=== PATIENT | female | born 1985 | race Caucasian/White ===

== ENCOUNTER 2023-12-08 07:28 | Emergency (ER) | payer BC, SELFPAY ==
[2023-12-08 07:32] VITALS: BP 127/73; PULSE 60; TEMP 37.1; O2SAT 100; BMI 23.3
--- NOTE | 2023-12-08 08:02 | ED.EYEPROB1 ---
HPI - Eye Problem General Chief complaint: Eye Problems Stated complaint: EYE INJRUY Time Seen by Provider: 12/08/23 07:33 Source: patient and family Mode of arrival: walk-in Limitations: no limitations History of Present Illness HPI Narrative: The patient is coming to the ER with a left eye irritation that she started having after she poked herself in the eye with a eyeliner pencil, the patient mentioned that she was going to work when she started having irritation and tearing and she does not have any blurry vision in the left eye but mostly tearing and pain. The patient does not wear contact lenses she will usually glasses and she wear goggles at work Related Data Previous Rx's ?Medication ?Instructions ?Recorded ibuprofen 600 mg tablet 600 mg PO Q8H PRN pain #20 tabs 12/08/23 tobramycin 0.3 % eye drops 2 drp ophthalmic (eye) Q4H #5 mL 12/08/23 tramadol 50 mg tablet 50 mg PO Q12H PRN pain #6 tabs 12/08/23 Allergies Allergy/AdvReac Type Severity Reaction Status Date / Time No Known Drug Allergies Allergy Verified 12/08/23 07:34 Review of Systems ROS Status of ROS 10 or more systems reviewed and unremarkable except as noted in history and below Exam Narrative Exam Narrative: Nurses notes and vital signs reviewed and patient is not hypoxic. General: Well-appearing and in no apparent distress. Skin: Warm, dry, no pallor noted. No rash. Head: Normocephalic, atraumatic. Neck: Supple, non-tender. Eye: Pupils are equal, round and EOMI. , the patient have irritation of the conjunctiva on the left side with erythema no open wounds or any hyphema or hypopyon or any signs of trauma to the globe itself, but the conjunctival erythema noted all over the eye with tearing. Eyelids are normal upper and lower The patient also was noted under fluorescent light that she have an abrasion that is just in the cornea mostly in the right upper quarter that is measuring 3 mm x 1 mm linear Ears, Nose, Mouth, and Throat: TM are clear, no nasal mucosal hypertrophy. Oral mucosa is moist, no posterior oropharynx erythema, uvula is mid-line Cardiovascular: Regular Rate and Rhythm without murmur, gallop or rub. Respiratory: No accessory muscle use or respiratory distress. Lungs are clear to auscultation, no wheezing, rales or rhonchi Chest Wall: no tenderness Back: No midline thoracic or lumbar vertebral tenderness. No CVA tenderness Musculoskeletal: normal ROM, no calf or popliteal tenderness, no lower extremity edema/swelling GI: Abdomen is soft, non-distended. Normal bowel sounds. No masses appreciated. No tenderness to palpation. No rebound, guarding, or rigidity noted. Neurological: A&O x4. No cranial nerve dysfunction observed. No truncal ataxia. Moves all extremities. Sensation intact. Psychiatric: Cooperative and interactive. Normal mood and affect. Constitutional Vital Signs, click to edit/add: Last Vital Signs Temp 98.7 F 12/08/23 07:32 Pulse 60 12/08/23 07:32 Resp 18 12/08/23 07:32 BP 127/73 12/08/23 07:32 Pulse Ox 100 12/08/23 07:32 O2 Del Method Room Air 12/08/23 07:32 Course Vital Signs Vital signs: Vital Signs Temperature 98.7 F 12/08/23 07:32 Pulse Rate 60 12/08/23 07:32 Respiratory Rate 18 12/08/23 07:32 Blood Pressure 127/73 12/08/23 07:32 Pulse Oximetry 100 12/08/23 07:32 Oxygen Delivery Method Room Air 12/08/23 07:32 Temperature 98.7 F 12/08/23 07:32 Pulse Rate 60 12/08/23 07:32 Respiratory Rate 18 12/08/23 07:32 Blood Pressure 127/73 12/08/23 07:32 Pulse Oximetry 100 12/08/23 07:32 Oxygen Delivery Method Room Air 12/08/23 07:32 MDM - Eye Problem MDM Narrative Medical decision making narrative: The patient presented to us with an abrasion to the left eye with the fluorescent lighting the patient was found to have an abrasion to the cornea that is 3 mm x 1 mm on the right upper quadrant The patient was feeling better after tetracaine provided with ibuprofen and tramadol prescription to go home with pain control She was instructed about the importance of follow-up with ophthalmology within 24 to 48 hours and she was referred to Dr. 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 The patient agrees with the following Diagnosis and Treatment plan and the patient will be discharged home. Discharge Plan Discharge Stand Alone Forms: Work/School Release, Portal Instructions Chief Complaint: Eye Problems Clinical Impression: Corneal abrasion Patient Disposition: Home, Self-Care Time of Disposition Decision: 08:00 Condition: Good Prescriptions / Home Meds: New tobramycin 0.3 % drops 2 drp ophthalmic (eye) Q4H Qty: 5 0RF Rx Instructions: left eye for 5 days tramadol 50 mg tablet 50 mg PO Q12H PRN (Reason: pain) Qty: 6 0RF ibuprofen 600 mg tablet 600 mg PO Q8H PRN (Reason: pain) Qty: 20 0RF Print Language: Romanian Instructions: Corneal Abrasion (ED) Referrals: Erick Molina MD [Physician] - As soon as possible ([address] [place], [place] [address] [place] [address] Get Directions)
[2023-12-08] MEDS: TETRACAINE HCL 0.5% OP SOL 80 DROP/4 ML BOTTLE OP (08:12)
[2023-12-08] MEDS: ERYTHROMYCIN OP OINT 0.5% 1 GM TUBE OP (08:12)
[2023-12-08] MEDS: FLUORESCEIN SODIUM 1 MG STRIP OP (08:12)
== END 2023-12-08 08:10 | disposition home or self-care (01) ==
LOC: ER 08:10
PROVIDERS: Emergency Provider Emergency Medicine; PCP Family Medicine
DX: S05.02XA Injury of conjunctiva and corneal abrasion without foreign body, left eye, initial encounter (principal); W22.8XXA Striking against or struck by other objects, initial encounter
CPT/HCPCS: 99283

== ENCOUNTER 2023-12-30 22:54 | Emergency (ER) | payer BC, SELFPAY ==
[2023-12-30 22:56] VITALS: BP 140/97; PULSE 78; TEMP 37.1; O2SAT 95; BMI 24.1
--- OUTSIDE RECORDS SUMMARY | 2023-12-30 23:07 | XMS_ITS | CCD ---
Author Organization [facility] Care Team Providers Care Brim Cutter Name Role Phone Lindy Dobson Primary Care Provider Barrett Davis Attending Provider YESI, DR GATICA Consulting Unavailable CLARA, DR SUSAN Jane Primary Care Unavailable YESI, DR GATICA Attending Unavailable YESI, DR GATICA Admitting Unavailable CLARA, DR SUSAN Jane Primary Care Unavailable ROHAN, DR CRISTINO Agarwal Attending Unavailable ROHAN, DR CRISTINO Agarwal Admitting Unavailable ROHAN, DR CRISTINO Agarwal Consulting Unavailable CLARA, DR SUSAN Jane Admitting Unavailable REYNA, DR SUSAN Jane Primary Care Unavailable REYNA, DR SUSAN Jane Attending Unavailable REYNA, DR SUSAN Jane Attending Unavailable REYNA, DR SUSAN Jane Admitting Unavailable REYNA, DR SUSAN Jane Primary Care Unavailable ESTEFANIA, DR PALOMO Romano Consulting Unavailable CLARA, DR SUSAN Jane Consulting Unavailable YESI, DR GATICA Attending Unavailable CLARA, DR SUSAN Jane Primary Care Unavailable YESI, DR GATICA Admitting Unavailable YESI, DR GATICA Consulting Unavailable ESTEFANIA, DR PALOMO Romano Consulting Unavailable GretchenMichelleLindy Unavailable [phone] MD Susan Reyna Attending Provider Susan Reyna Attending Unavailable Susan Reyna Admitting Unavailable Medications Current Medications Medication Drug Class(es) Dates Sig (Normalized) Sig (Original) [id number] 200 actuat albuterol 0.09 mg/actuat metered dose inhaler (1 source) beta2-Adrenergic Agonist Start: 03-03-2023 take 1 puff(s) by inhalation every four hours as needed Ventolin HFA 108 (90 Base) MCG/ACT 1 puff as needed Inhalation every 4 hrs for 30 days Feb, Active Budesonide / formoterol (1 source) Corticosteroid, beta2-Adrenergic Agonist Symbicort Active 12 hr buPROPion hydrochloride 150 mg extended release oral tablet (2 sources) Aminoketone Start: 12-11-2023 take 1 tablet by mouth once daily, then take 1 tablet by mouth twice daily Bupropion Hcl (Wellbutrin Sr) 150 mg tablet sustained-release 12 hr Active 150 MG PO Twice daily 60 December 11, 2023 12:00am 1 daily x 3 days then 1 po bid (smoking cessation) ciprofloxacin 250 mg oral tablet (2 sources) Quinolone Antimicrobial Start: 12-11-2023 take 250 mg by mouth twice daily Ciprofloxacin Hcl Active 250 MG PO Twice daily 14 December 11, 2023 12:00am cyclobenzaprine hydrochloride 10 mg oral tablet (2 sources) Muscle Relaxant Start: 12-11-2023 take 10 mg by mouth once daily at bedtime Cyclobenzaprine Active 10 MG PO Daily at bedtime December 11, 2023 12:00am ibuprofen 600 mg oral tablet (2 sources) Nonsteroidal Anti-inflammatory Drug Start: 12-11-2023 take 600 mg by mouth every eight hours Ibuprofen Active 600 MG PO Every 8 hours December 11, 2023 12:00am tobramycin 3 mg/ml ophthalmic solution (2 sources) Aminoglycoside Antibacterial Start: 12-11-2023 take 1 drop(s) into the eye(s) every four hours Tobramycin Active 1 DROPS EYE-BOTH Every 4 hours December 11, 2023 12:00am traMADol hydrochloride 50 mg oral tablet (2 sources) Opioid Agonist Start: 12-11-2023 take 50 mg by mouth three times daily Tramadol Active 50 MG PO Three times daily December 11, 2023 12:00am triamcinolone acetonide 1 mg/ml topical cream (3 sources) Corticosteroid Start: 11-04-2023 Triamcinolone Acetonide Active 1 APPLIC TOPICAL Twice daily 02 02November 04, 2023 12:00am valACYclovir 500 mg oral tablet (2 sources) Herpesvirus Nucleoside Analog DNA Polymerase Inhibitor, Herpes Simplex Virus Nucleoside Analog DNA Polymerase Inhibitor, Herpes Zoster Virus Nucleoside Analog DNA Polymerase Inhibitor Start: 12-11-2023 take 1 tablet by mouth once daily Valacyclovir (Valtrex) 500 mg tablet Active 500 MG PO Daily December 11, 2023 12:00am Completed/Discontinued Medications Medication Drug Class(es) Dates Sig (Normalized) Sig (Original) Azithromycin (4 sources) Macrolide Antimicrobial Start: 10-27-2023 End: 11-04-2023 Azithromycin Discontinued 0 PO .COMPLEX October 27, 2023 12:00am November 04, 2023 8:54am For 250 mg dose pack: take 500 mg today (day 1), then 250 mg for 4 days (days 2-5) PO Start: 03-03-2023 Azithromycin 2 50 MG 2 tablet on the first day, then 1 tablet daily for 4 days Orally Once a day for 5 days Feb, Active methylPREDNISolone 4 mg oral tablet (4 sources) Corticosteroid Start: 11-04-2023 End: 12-11-2023 take 1 tablet by mouth once Methylprednisolone (Medrol (Edmar)) 4 mg tablets,dose pack Discontinued 0 PO per package directions 21 November 04, 2023 12:00am December 11, 2023 11:46am PO PER PKG DIR Start: 03-03-2023 methylPREDNISo lone 4 MG as directed Orally daily for 6 days Feb, Active Problems Active Problems Problem Classification Problem Date Documented Date Episodic/Chronic Anxiety disorders (1 source) Anxiety disorder; Translations: [Other specified anxiety disorders] Onset: 08-18-2016 Chronic Asthma (1 source) Mild intermittent asthma; Translations: [Mild intermittent asthma, uncomplicated] Chronic Attention-deficit, conduct, and disruptive behavior disorders (1 source) Attention deficit hyperactivity disorder; Translations: [Attention deficit disorder of childhood with hyperactivity] Onset: 01-21-2018 Chronic Attention-deficit, conduct, and disruptive behavior disorders (1 source) Attention deficit hyperactivity disorder, combined type; Translations: [Attention-deficit hyperactivity disorder, combined type] Chronic Chronic obstructive pulmonary disease and bronchiectasis (1 source) Bronchitis, not specified as acute or chronic Episodic E Codes: Natural/environment (1 source) Bitten by dog, initial encounter; Translations: [BITTEN BY DOG INITIAL ENCOUNTER] Onset: 08-21-2020 Episodic Genitourinary symptoms and ill-defined conditions (5 sources) Dysuria; Translations: [Dysuria] Onset: 12-11-2023 12-11-2023 Episodic Immunizations and screening for infectious disease (2 sources) Encounter for immunization; Translations: [Encounter for screening for human papillomavirus (HPV)] Onset: 05-11-2020 Episodic Nonmalignant breast conditions (7 sources) Mastodynia; Translations: [Pain of breast] Onset: 06-08-2020 Resolved: 06-12-2020 Episodic Open wounds of extremities (5 sources) Laceration without foreign body of right hand, initial encounter; Translations: [Open wound of hand except fingers without complication] Onset: 08-19-2020 Episodic Other nervous system disorders (1 source) Carpal tunnel syndrome; Translations: [Carpal tunnel syndrome, right upper limb] Chronic Other nutritional; endocrine; and metabolic disorders (1 source) Overweight; Translations: [Overweight] Episodic Other skin disorders (3 sources) Vesicular eczema; Translations: [Dyshidrosis [pompholyx]] 11-04-2023 Episodic Other skin disorders (3 sources) Dyshidrosis [pompholyx]; Translations: [Dyshidrosis] 11-04-2023 Episodic Otitis media and related conditions (5 sources) Non-suppurative otitis media; Translations: [Unspecified nonsuppurative otitis media, right ear] 11-05-2023 Episodic Residual codes; unclassified (1 source) Normal body mass index; Translations: [Body mass index (BMI) 24.0-24.9, adult] Episodic Spondylosis; intervertebral disc disorders; other back problems (7 sources) Low back pain; Translations: [Low back pain] Onset: 08-18-2016 Resolved: 05-07-2020 Episodic Substance-related disorders (3 sources) Nicotine dependence, cigarettes, uncomplicated; Translations: [Tobacco dependence syndrome] Onset: 08-21-2020 12-11-2023 Chronic Viral infection (1 source) Herpesviral vesicular dermatitis; Translations: [Herpesviral vesicular dermatitis] Episodic Past or Other Problems Problem Classification Problem Date Documented Date Episodic/Chronic Abdominal pain (1 source) Pelvic and perineal pain; Translations: [Pelvic and perineal pain] Resolved: 05-07-2020 Episodic Acute bronchitis (1 source) Acute bronchitis; Translations: [Acute bronchitis] Onset: 08-19-2018 Episodic Other female genital disorders (1 source) Dyspareunia; Translations: [Unspecified dyspareunia] Resolved: 05-07-2020 Chronic Other female genital disorders (1 source) Premenstrual tension syndrome; Translations: [Premenstrual tension syndrome] Resolved: 06-12-2020 Chronic Other screening for suspected conditions (not mental disorders or infectious disease) (5 sources) Other abnormal and inconclusive findings on diagnostic imaging of breast; Translations: [Encounter for screening for malignant neoplasm of cervix] Onset: 05-08-2020 Episodic Other upper respiratory infections (1 source) Chronic sinusitis; Translations: [Chronic sinusitis, unspecified] Resolved: 05-07-2020 Chronic Other upper respiratory infections (1 source) Acute maxillary sinusitis; Translations: [Acute recurrent maxillary sinusitis] Onset: 03-03-2017 Episodic Residual codes; unclassified (1 source) Tobacco user; Translations: [Nondependent tobacco use disorder] Onset: 03-03-2017 Episodic Unclassified (1 source) Gynecological examination normal; Translations: [Routine gynecological examination] Onset: 08-20-2017 Results Test Name Value Interpretation Reference Range Facil ity Urine Cultureon 12-11-2023 Bacteria identified Cx Nom (U) ORGANISM: Escherichia coli (O:ESCCOL) Wingo Count >100,000 Aerobic QUENTIN Charge (NMIC56) -- SUSCEPTIBILITY - ORGANISM: O:ESCCOL ANTIBIOTIC INTERPRETATION QUENTIN Amikacin S <16 Amoxacillin/K Clavulanate S <8 Ampicillin S <8 Ampicillin/Sulbactam S <4 Aztreonam S <4 Cefazolin S <2 Cefepime S <2 Ceftazidime S <1 Ceftazidime/Avibactam S <4 Ceftolozane/Tazobactam S <2 Ceftriaxone S <1 Cefuroxime S <4 Ciprofloxacin S <0.25 Ertapenem S <0.5 Gentamicin S <2 Levofloxacin S <0.5 Meropenem S <1 Meropenem/Vaborbactam S <2 Nitrofurantoin S <32 Piperacillin/Tazobactam S <8 Tetracycline S <4 Tigecycline S <2 Tobramycin S <2 Trimethoprim/Sulfametho xazole R >2 S = SUSCEPTIBLE I = INTERMEDIATE R = RESISTANT BLANK = DATA NOT AVAILABLE, OR DRUG NOT ADVISABLE OR TESTED R* = RESISTANCE DUE TO EXTENDED SPECTRUM BETA-LACTAMASES ESBL = EXTENDED SPECTRUM BETA-LACTAMASE TFG = THYMIDINE-DEPENDENT STRAIN MENDY = BETA-LACTAMASE POSITIVE IB = INDUCIBLE BETA-LACTAMASE. APPEARS IN PLACE OF 'S' WITH SPECIES KNOWN TO POSSESS INDUCIBLE BETA-LACTAMASES. POTENTIALLY THEY MAY BECOME RESISTANT TO ALL B-LACTAM DRUGS. PERFORMED BY: KRISTINA VILLE [id number] PATHOLOGIST SENIOR SEARCH MARKETING ANALYST WILL Donovan [facility] Comment on above: Performed By: #### C UU #### [address] MG MAMM DIOR DIAG W [place]on MG MAMM DIOR DIAG W CAD Patient: NATALIE ESCOBEDO Exam Date: 06/08/2020 : 1985 Gender:F Ordering : DR EN KEY . Admission #: [id number] Family : DR SUASN REYNA M.D. Order #: [id number] CLICK HERE TO VIEW EXAM RADIOLOGY REPORT PROCEDURE: MAMMOGRAM BILATERAL DIAGNOSTIC DIGITAL WITH COMPUTER AIDED DETECTION, 06/08/2020, 13:43 ULTRASOUND BREAST BILATERAL LIMITED, 06/08/2020, 14:20 COMPARISON: None. INDICATIONS: Pain of breast Calculator Name NCI Breast Cancer Risk Assessment Tool 5 Year Breast Cancer Risk Not Reported. Lifetime Breast Cancer Risk Not Reported. Personal Breast Cancer No Personal Ovarian Cancer No Treatments None Family Cancers None LOCATION: [facility] BREAST COMPOSITION: Extremely dense, which lowers the sensitivity of mammography. FINDINGS: DIAGNOSTIC CATEGORY 0--INCOMPLETE ASSESSMENT: NEED ADDITIONAL IMAGING EVALUATION. Standard and spot compression views were taken of both breasts. RIGHT BREAST: Area of focal asymmetry identified in the upper-outer quadrant of the right breast, this partially disperses on the compression view with a 4.4 mm well-circumscribed lesion persistent. A 2nd area is identified at the chest wall on the CC projection which disperses with spot compression. Ultrasound was performed demonstrating at the 2 o'clock position in a 4.9 x 3.9 x 5.5 mm area of hypo echogenicity with slightly lobular contours, wider than tall with heterogeneous echotexture. A 2nd lesion is identified at 9:00 a.m. Measuring 6.7 x 2.7 x 2.7 mm, this lesion resembles a normal-size normal morphology lymph node and likely corresponds to the abnormality seen on mammography. LEFT BREAST: 5.3 x 4.4 cm area of focal asymmetry upper outer quadrant, this area persists with spot images. Ultrasound of this area demonstrates no focal mass. Further evaluation of this area with MRI is suggested. An adjacent well-circumscribed nodule measuring 8.7 x 6.0 mm having a reniform shape, this persists on spot imaging, ultrasound demonstrates at the 10 o'clock position a normal-size normal morphology lymph node measuring 7.4 x 3.4 x 8.1 cm. RECOMMENDATIONS: BREAST MRI: BILATERAL BREASTS PLEASE NOTE: A NORMAL MAMMOGRAM DOES NOT EXCLUDE THE POSSIBILITY OF BREAST CANCER. A CLINICALLY SUSPICIOUS PALPABLE LUMP SHOULD BE BIOPSIED. Dictated by: Palomo Mac MD on 06/08/2020 at 15:10 Approved by: Palomo Mac MD on 06/08/2020 at 15:18 Normal [facility] US BREAST DIOR LIMITEDon 03-0 US BREAST DIOR LIMITED Patient: NATALIE ESCOBEDO Exam Date: 06/08/2020 : 1985 Gender:F Ordering : DR EN KEY . Admission #: [id number] Family : DR SUSAN REYNA M.D. Order #: [id number] CLICK HERE TO VIEW EXAM RADIOLOGY REPORT PROCEDURE: MAMMOGRAM BILATERAL DIAGNOSTIC DIGITAL WITH COMPUTER AIDED DETECTION, 06/08/2020, 13:43 ULTRASOUND BREAST BILATERAL LIMITED, 06/08/2020, 14:20 COMPARISON: None. INDICATIONS: Pain of breast Calculator Name NCI Breast Cancer Risk Assessment Tool 5 Year Breast Cancer Risk Not Reported. Lifetime Breast Cancer Risk Not Reported. Personal Breast Cancer No Personal Ovarian Cancer No Treatments None Family Cancers None LOCATION: [facility] BREAST COMPOSITION: Extremely dense, which lowers the sensitivity of mammography. FINDINGS: DIAGNOSTIC CATEGORY 0--INCOMPLETE ASSESSMENT: NEED ADDITIONAL IMAGING EVALUATION. Standard and spot compression views were taken of both breasts. RIGHT BREAST: Area of focal asymmetry identified in the upper-outer quadrant of the right breast, this partially disperses on the compression view with a 4.4 mm well-circumscribed lesion persistent. A 2nd area is identified at the chest wall on the CC projection which disperses with spot compression. Ultrasound was performed demonstrating at the 2 o'clock position in a 4.9 x 3.9 x 5.5 mm area of hypo echogenicity with slightly lobular contours, wider than tall with heterogeneous echotexture. A 2nd lesion is identified at 9:00 a.m. Measuring 6.7 x 2.7 x 2.7 mm, this lesion resembles a normal-size normal morphology lymph node and likely corresponds to the abnormality seen on mammography. LEFT BREAST: 5.3 x 4.4 cm area of focal asymmetry upper outer quadrant, this area persists with spot images. Ultrasound of this area demonstrates no focal mass. Further evaluation of this area with MRI is suggested. An adjacent well-circumscribed nodule measuring 8.7 x 6.0 mm having a reniform shape, this persists on spot imaging, ultrasound demonstrates at the 10 o'clock position a normal-size normal morphology lymph node measuring 7.4 x 3.4 x 8.1 cm. RECOMMENDATIONS: BREAST MRI: BILATERAL BREASTS PLEASE NOTE: A NORMAL MAMMOGRAM DOES NOT EXCLUDE THE POSSIBILITY OF BREAST CANCER. A CLINICALLY SUSPICIOUS PALPABLE LUMP SHOULD BE BIOPSIED. Dictated by: Palomo Mac MD on 06/08/2020 at 15:10 Approved by: Palomo Mac MD on 06/08/2020 at 15:18 Normal [facility] XR LSPINE MIN 4 VIEWSon 03-0 XR LSPINE MIN 4 VIEWS EXAMINATION: XR LSPINE MIN 4 VIEWS HISTORY: Low back pain COMPARISON: 06/08/2020 FINDINGS: BONES: Normal. No significant spondylosis, scoliosis, fracture, or visible bony lesion. DISC SPACES: Normal. No significant disc height narrowing, subluxation, or endplate abnormality. PARASPINOUS: Negative. No paraspinous abnormality is seen. OTHER: IUD in the pelvis. IMPRESSION: No acute abnormality Electronically authenticated by: PALOMO MAC Date: 2020-06-08 15:28 Normal [facility] PAP ACOG PANEL 2: 30 to 65on 05-11-2020 . . Normal [facility] Comment on above: Result Comment: Perf ormed at: WB Performed By: #### [id number] #### [facility] [address] [place], [place] [address] Alfonso Guevara Age Gdln ACOG Testing 30-65 Normal [facility] Comment on above: Performed By: #### [id number] #### [facility] [address] [place], [place] [address] Alfonso Guevara DIAGNOSIS: Comment Normal [facility] Comment on above: Result Comment: NEGA TIVE FOR INTRAEPITHELIAL LESION OR MALIGNANCY. Performed at: WB Performed By: #### [id number] #### [facility] [address] [place] [address] Alfonso Guevara HPV Aptima Negative Normal Negative [facility] Comment on above: Result Comment: This nucleic acid amplification test detects fourteen high-risk HPV types (16,18,31,33,35,39,45,51,52,56,58,59,66,68) without differentiation. Performed at: =G Performed By: #### [id number] #### [facility] [address] [place] [address] Alfonso Guevara Methodology: Comment Normal [facility] Comment on above: Result Comment: This liquid based ThinPrep(R) pap test was screened with the use of an image guided system. Performed at: WB Performed By: #### [id number] #### [facility] [address] [place] [address] Alfonso Guevara Note: Comment Normal [facility] Comment on above: Result Comment: The Pap smear is a screening test designed to aid in the detection of premalignant and malignant conditions of the uterine cervix. It is not a diagnostic procedure and should not be used as the sole means of detecting cervical cancer. Both false-positive and false-negative reports do occur. . Performed at: WB Performed By: #### [id number] #### [facility] [address] [place] [address] Alfonso Guevara Performed by: Comment Normal [facility] Comment on above: Result Comment: Shira Everett, Graduate Engineer (ASCP) Performed at: WB Performed By: #### [id number] #### [facility] [address] [place] [address] Alfonso Guevara Specimen adequacy: Comment Normal [facility] Comment on above: Result Comment: Sati sfactory for evaluation. Endocervical and/or squamous metaplastic cells (endocervical component) are present. Performed at: WB Performed By: #### [id number] #### [facility] [address] [place] [address] Alfonso Guevara Vital Signs Date Time Vital Sign Value Performing Clinician Facility 12-11-2023 11:44-0400 Body height 162.56 cm [facility] 12-11-2023 11:44-0400 Body mass index (BMI) [Ratio] 25.4 kg/m2 [facility] 12-11-2023 11:44-0400 Body weight 67.13 kg [facility] 12-11-2023 11:44-0400 Diastolic blood pressure 66 mm[Hg] [facility] 12-11-2023 11:44-0400 Heart rate 60 /min [facility] 12-11-2023 11:44-0400 Systolic blood pressure 101 mm[Hg] [facility] 11-04-2023 14:42-0400 Body height 162.56 cm [facility] 11-04-2023 14:42-0400 Body mass index (BMI) [Ratio] 24 kg/m2 [facility] 11-04-2023 14:42-0400 Body weight 63.5 kg [facility] 11-04-2023 14:42-0400 Diastolic blood pressure 76 mm[Hg] [facility] 11-04-2023 14:42-0400 Heart rate 72 /min [facility] 11-04-2023 14:42-0400 SaO2% (BldA) [Mass fraction] 98 % [facility] 11-04-2023 14:42-0400 Systolic blood pressure 128 mm[Hg] [facility] 03-03-2023 11:15-0500 Body height 162.56 cm Lindy Godinez Other [facility] Other 03-03-2023 11:15-0500 Body mass index (BMI) [Ratio] 24.2 kg/m2 Lindy Godinez Other [facility] Other 03-03-2023 11:15-0500 Body temperature 97.6 [degF] Lindy Godinez Other [facility] Other 03-03-2023 11:15-0500 Body weight 63.96 kg Lindy Gretchen Other [facility] Other 03-03-2023 11:15-0500 Diastolic blood pressure 70 mm[Hg] Lindy Gretchen Other [facility] Other 03-03-2023 11:15-0500 SaO2% (BldA) [Mass fraction] 99 % Lindy Gretchen Other [facility] Other 03-03-2023 11:15-0500 Systolic blood pressure 110 mm[Hg] Lindy Gretchen Other [facility] Other Encounters Encounter Date Encounter Type Care Provider Facility Start: 12-11-2023 End: 12-11-2023 ambulatory Susan Reyna [facility] Work Phone: Start: 12-11-2023 End: 12-11-2023 Departed Referred MD Susan Reyna Work Phone: [facility] [place] Work Phone: Start: 12-11-2023 End: 12-11-2023 ambulatory [facility] Work Phone: Start: 12-11-2023 End: 12-11-2023 Patient encounter procedure [facility] Work Phone: Start: 11-04-2023 End: 11-04-2023 ambulatory [facility] Work Phone: Start: 11-04-2023 End: 11-04-2023 Patient encounter procedure [facility] Work Phone: Start: 03-03-2023 End: 03-03-2023 ambulatory Lindy Godinez Other [facility] Other Start: 03-03-2023 Office outpatient vi sit 15 minutes Lindy Godinez [facility] Start: 10-03-2021 Gynecological examination normal Lindy Godinez Other [facility] Other Start: 10-04-[address] SUSAN REYNA [facility] ity:H1 Start: 08-19-2020 End: 08-19-[address] SUSAN REYNA Facility:[facility] Start: 07-24-2020 End: 07-24-2020 Patient encounter procedure Lindy Dobson Work Phone: [facility] [place] Start: 06-08-2020 End: [address] SUSAN REYNA Facility:[facility] Start: 05-08-2020 End: 05-08-[address] EN KEY Facility:[facility] Procedures Date Procedure Procedure Detail Performing Clinician Start: 06-13-2020 Replacement of intra uterine contraceptive device Lindy Godinez Other Removal of suture Lindy molina Other Plan of Treatment Date Care Activity Detail Author Start: 12-11-2023 Bacteria identified in Urine by Culture [facility] Bacteria identified in Urine by Culture [facility] Payers Date Payer Category Payer Unknown [id number] .. [id number] 1985 Unknown [id number] 1985 Unknown [id number] 1985 Unknown [id number] 1985 Unknown [id number] 1958 Self-pay [id number] 1958 Unknown [id number] Unknown [id number] Social History Date Type Detail Facility Tobacco smoking status NHIS Unknown if ever smoked [facility] Start: 1985 Sex Assigned At Female F [facility] Sex Assigned At Sex Assigned At Bir th [email or web address] [facility] [email or web address] Other Start: 11-04-2023 Tobacco smoking status NHIS Never smoked tobacco (finding) [facility] Goals Date Patient Goal Desired Activity /State Evaluation note 03-03-2023 Note Date & Type Note Facility 03-03-2023 Evaluation note Encounter Date Diagnosis Assessment Notes Feb, Bronchitis (ICD-10 - J40) Discussed diagnosis with patient. Patient to start Zithromax. Patient to take Zithromax daily with food as prescribed. Finish entire course of antibiotic. Ventolin inhaler sent today for patient to use PRN cough/wheezing/s hortness of breath. Steroid as ordered. Take medication as prescribed. Complete all doses of medication, even if sx are no longer present. Pt instructed to take medication with food. Informed pt that medication may make pt feel jittery, hungry and give you extra energy. Medication may also increase blood pressure and increase blood sugar. Pt also advised not to take NSAIDs while using steroids. Increase fluids and rest. [id number] antipyretics as needed. Warning signs and symptoms reviewed with patient today. Patient to go immediately to the ER should she experience any of these. Patient to notify office should her symptoms persist and not improve. Patient verbalizes understanding and agrees to treatment plan. [employer] Other Evaluation note Note Date & Type Note Facility Evaluation note No Assessments Information Avail able [facility] Evaluation note Note Date & Type Note Facility Evaluation note Diagnosis Onset Date Dyshidrotic eczema acute [facility] Work Phone: Evaluation note Note Date & Type Note Facility Evaluation note Diagnosis Onset Date Dyshidrotic eczema acute Eustachian tube dysfunction acute Dysuria acute [facility] Work Phone: Evaluation note Note Date & Type Note Facility Evaluation note Diagnosis Onset Date Dyshidrotic eczema acute Eustachian tube dysfunction acute Dysuria acute Tobacco dependence acute [facility] Work Phone: History general Narrative - Reported Note Date & Type Note Facility History general Narrative - Reported Type Surgical History Oral surgery [employer] Other Advance Directives No Advanced Directives Records Found Advance Directive Response Recorded Date/ Time Advance Directives No July 05 11:56am Chief Complaint and Reason for Visit Chief Complaint Breast Nodule Chief Complaint bumps on hand Reason for Visit Dyshidrotic eczema Chief Complaint bumps on hand Urinary Tract Infection / UTI Reason for Visit Dyshidrotic eczema Eustachian tube dysfunction Dysuria Chief Complaint bumps on hand Urinary Tract Infection / UTI Reason for Visit Dyshidrotic eczema Eustachian tube dysfunction Dysuria Tobacco dependence Summary Purpose Family History No Family History Records Found Relationship Condition Age at Onset Recorded Date/T daniela father Family history of other condition Unknown grandparent Family history of mental disorder Unknown grandparent Hypertension Unknown Diabetes mellitus Unknown grandparent Malignant neoplasm of brain Unknown mother Diabetes mellitus Unknown Hypertension Unknown Malignant neoplasm Unknown Additional Source Comments INFORMATION SOURCE (unrecogn ized section and content) DATE CREATED AUTHOR 10/06/2020 [facility] DATE CREATED AUTHOR AUTHOR'S ORGANIZ ATION 12/24/2023 [facility] REASON FOR VISIT (unrecogniz ed section and content) CONGESTION FOR OVER A WEEK Care Teams (unrecognized sec tion and content) Team Status: Active Member Role Status Dates Lindy Dobson MD Primary Care Provider Active Team Status: Inactive Member Role Status Dates Lindy Dobson MD Primary Care Provider Active Start: November 04, 2023 End: November 04, 2023 Lindy Godinez APRN [employer]-C Attending Provider Act ita Start: November 04, 2023 End: November 04, 2023 Team Status: Inactive Member Role Status Dates Lindy Dobson MD Primary Care Provider Active Start: December 11, 2023 End: December 11, 2023 Susan Reyna MD Attending Provider Active art: December 11, 2023 End: December 11, 2023 Team Status: Inactive Member Role Status Dates Susan Reyna MD Attending Provider Active art: December 11, 2023 End: December 11, 2023 Goals (unrecognized section and content) Goals may be documented in a n alternate section FOR RECORDS PERTAINING TO PATIENTS WHO ARE OR HAVE BEEN ENROLLED IN A CHEMICAL DEPENDENCY/SUBSTANCEABUSE PROGRAM, SOME INFORMATION MAY BE OMITTED. This clinical summary was aggregated from multiple sources. Caution should be exercised in using it in the provision of clinical care. This summary normalizes information from multiple sources, and as a consequence, information in this document may materially change the coding, format and clinical context of patient data. In addition, data may be omitted in some cases. CLINICAL DECISIONS SHOULD BE BASED ON THE PRIMARY CLINICAL RECORDS. [facility] [employer] provides no warranty or guarantee of the accuracy or completeness of information in this document.
--- NOTE | 2023-12-30 23:17 | ED_ITS ---
HPI - Eye Problem General Chief complaint: Eye Problems Stated complaint: Eye Redness/Swelling Time Seen by Provider: 12/30/23 23:03 Source: patient Mode of arrival: ambulance Limitations: no limitations History of Present Illness HPI Narrative: states she was seen here earlier this month and found to have an abrasion left eye from her eye liner. Seen in follow up by her eye doctor and was doing well. Discomfort of the eye returned about 3 days ago and has progressed. eye is tearing and burning. No swelling or hedache Related Data Previous Rx's ?Medication ?Instructions ?Recorded ibuprofen 600 mg tablet 600 mg PO Q8H PRN pain #20 tabs 12/08/23 tobramycin 0.3 % eye drops 2 drp ophthalmic (eye) Q4H #5 mL 12/08/23 tramadol 50 mg tablet 50 mg PO Q12H PRN pain #6 tabs 12/08/23 Allergies Allergy/AdvReac Type Severity Reaction Status Date / Time No Known Drug Allergies Allergy Verified 12/30/23 23:00 Review of Systems ROS Status of ROS 10 or more systems reviewed and unremark able except as noted in history and below PFSH PFSH Social History Little interest or pleasure in doing things: not at all Feeling down, depressed, or hopeless: not at all Exam Constitutional Vital Signs, click to edit/add: Last Vital Signs Temp 98.7 F 12/30/23 22:56 Pulse 78 12/30/23 22:56 Resp 18 12/30/23 22:56 BP 140/97 H 12/30/23 22:56 Pulse Ox 95 12/30/23 22:56 O2 Del Method Room Air 12/30/23 22:56 Common normals: average body habitus, oriented x3, no limitations, healthy appearing, alert and well nourished Respiratory Common normals: normal respiratory effort, no retractions, no use of accessory muscles and clear to auscultation bilaterally Cardio Common normals: regular rate, regular rhythm, S1 normal heart sound and S2 normal heart sound Extremity Common normals: normal to inspection and full ROM Neuro Common normals: oriented x3, CN's II-XII intact bilaterally, moves all extremiti es and no focal motor deficits Psych Appearance: grossly normal Course Vital Signs Vital signs: Vital Signs Temperature 98.7 F 12/30/23 22:56 Pulse Rate 78 12/30/23 22:56 Respiratory Rate 18 12/30/23 22:56 Blood Pressure 140/97 H 12/30/23 22:56 Pulse Oximetry 95 12/30/23 22:56 Oxygen Delivery Method Room Air 12/30/23 22:56 Temperature 98.7 F 12/30/23 22:56 Pulse Rate 78 12/30/23 22:56 Respiratory Rate 18 12/30/23 22:56 Blood Pressure 140/97 H 12/30/23 22:56 Pulse Oximetry 95 12/30/23 22:56 Oxygen Delivery Method Room Air 12/30/23 22:56 MDM - Eye Problem MDM Narrative Medical decision making narrative: patient present with inflammation of the left eye. No chemosis. fluorescein and tetracaine instilled in the eye. immediate relief after tetracaine. found to have an abrasion at 9 o'clock position . Patient informed of the above. prescribed erythromycin eye antibiotic and discharged home with Tramadol for pain and advised to follow up with her eye doctor Discharge Plan Discharge Chief Complaint: Eye Problems Clinical Impression: Corneal abrasion Patient Disposition: Home, Self-Care Prescriptions / Home Meds: No Action tobramycin 0.3 % drops 2 drp ophthalmic (eye) Q4H Qty: 5 0RF Rx Instructions: left eye for 5 days tramadol 50 mg tablet 50 mg PO Q12H PRN (Reason: pain) Qty: 6 0RF ibuprofen 600 mg tablet 600 mg PO Q8H PRN (Reason: pain) Qty: 20 0RF Print Language: Luxembourgish Instructions: Corneal Abrasion (ED) Additional Instructions: follow up with your eye doctor tomorrow for return to ER tomorrow for recheck if not able to see your doctor Referrals: Susan Reyna MD [Primary Care Provider] - 1 week
[2023-12-30] MEDS: FLUORESCEIN SODIUM 1 MG STRIP OP (23:31)
[2023-12-30] MEDS: TETRACAINE HCL 0.5% OP SOL 80 DROP/4 ML BOTTLE OP (23:31)
[2023-12-30] MEDS: TRAMADOL HCL 50 MG TABLET 100 MG PO (23:47)
[2023-12-30] MEDS: TOBRAMYCIN 0.3% OP SOL 100 DROP/5 ML BOTTLE OP (23:58)
== END 2023-12-31 00:05 | disposition home or self-care (01) ==
PROVIDERS: Emergency Provider Internal Medicine; PCP Family Medicine
DX: S05.02XA Injury of conjunctiva and corneal abrasion without foreign body, left eye, initial encounter (principal); X58.XXXA Exposure to other specified factors, initial encounter
CPT/HCPCS: 99284

== ENCOUNTER 2024-02-04 17:57 | Outpatient (OUT) | payer BC, SELFPAY ==
--- NOTE | 2024-02-04 | XR_ITS ---
The [address] [address] Patient Name: NATALIE RAMOS MRN: [id number] date: 1985 Sex: F Assigned Patient Location: [facility] Current Patient Location: [facility] Accession/Order Number: [id number] Exam Date: 02/04/2024 18:10 Report Date: 02/06/2024 08:01 At the request of: PRIMO ELIZABETH Procedure: XR cervical spine 5V EXAMINATION: XR cervical spine 5V HISTORY: M54.12, CERVICAL RADICULAR PAIN ; left neck and arm pain, numbness COMPARISON: No relevant comparison available. FINDINGS: BONES: Slight reversal of normal lordotic curvature. No fracture, spondylolisthesis, bone lesion. No significant facet arthropathy. DISC SPACES: Mild narrowing C5-C6. PARASPINOUS: Negative. No paraspinous abnormality is seen. OTHER: Negative. XR/XR cervical spine 5V IMPRESSION: 1. C5-C6 mild-moderate disc space narrowing suggesting degenerative disc disease or disc bulging. 2. Reversal normal lordotic curvature; positioning versus muscle spasm. Electronically authenticated by: MALCOLM DELANEY Date: 02/06/2024 08:01
--- OUTSIDE RECORDS SUMMARY | 2024-02-04 18:00 | XMS_ITS | CCD ---
Author Organization [facility] Care Team Providers Care Dry Chain Puller Name Role Phone Lindy Dobson Primary Care [...] Unavailable CLARA, DR SUSAN Jane Admitting Unavailable ELIZABETH, DR SUSAN Jane Primary Care Unavailable ELIZABETH, DR SUSAN Jane Attending Unavailable ELIZABETH, DR SUSAN Jane Attending Unavailable ELIZABETH, DR SUSAN Jane Admitting Unavailable ELIZABETH, DR SUSAN Jane Primary Care Unavailable ESTEFANIA, DR PALOMO Romano Consulting Unavailable CLARA, DR SUSAN Jane Consulting Unavailable YESI, DR GATICA Attending Unavailable CLARA, DR SUSAN Jane Primary Care Unavailable YESI, DR GATICA Admitting Unavailable YESI, DR GATICA Consulting Unavailable ESTEFANIA, DR PALOMO Romano Consulting Unavailable YesyMichelle agarwalLindy Unavailable MD Susan Elizabeth Attending Provider [phone] Susan Elizabeth Attending Unavailable Susan Elizabeth Admitting Unavailable Medications Current Medications Medication Drug Class(es) Dates Sig (Normalized) Sig (Original) [id number] 200 actuat albuterol 0.09 mg/actuat metered dose inhaler (1 source) beta2-Adrenergic Agonist Start: 03-03-2023 take 1 puff(s) by inhalation every four hours as needed Ventolin HFA 108 (90 Base) MCG/ACT 1 puff as needed Inhalation every 4 hrs for 30 days Feb, Active Budesonide / formoterol (1 source) Corticosteroid, beta2-Adrenergic Agonist Symbicort Active 12 hr buPROPion hydrochloride 150 mg extended release oral tablet (3 sources) Aminoketone Start: 12-11-2023 take 1 tablet by mouth once daily, then take 1 tablet by mouth twice daily Bupropion Hcl (Wellbutrin Sr) 150 mg tablet sustained-release 12 hr Active 150 MG PO Twice daily 60 December 11, 2023 12:00am 1 daily x 3 days then 1 po bid (smoking cessation) cyclobenzaprine hydrochloride 10 mg oral tablet (3 sources) Muscle Relaxant Start: 12-11-2023 take 10 mg by mouth once daily at bedtime Cyclobenzaprine Active 10 MG PO Daily at bedtime December 11, 2023 12:00am meloxicam 15 mg oral tablet (1 source) Nonsteroidal Anti-inflammatory Drug Start: 02-04-2024 take 15 mg by mouth once daily Meloxicam Active 15 MG PO Daily February 04, 2024 12:00am valACYclovir 500 mg oral tablet (3 sources) Herpesvirus Nucleoside Analog DNA Polymerase Inhibitor, Herpes Simplex Virus Nucleoside Analog DNA Polymerase Inhibitor, Herpes Zoster Virus Nucleoside Analog DNA Polymerase Inhibitor Start: 12-11-2023 take 1 tablet by mouth once daily Valacyclovir (Valtrex) 500 mg tablet Active 500 MG PO Daily December 11, 2023 12:00am Completed/Discontinued Medications Medication Drug Class(es) Dates Sig (Normalized) Sig (Original) Azithromycin (5 sources) Macrolide Antimicrobial Start: 10-27-2023 End: 11-04-2023 Azithromycin Discontinued 0 PO .COMPLEX 6 October 27, 2023 12:00am November 04, 2023 8:54am For 250 mg dose pack: take 500 mg today (day 1), then 250 mg for 4 days (days 2-5) PO Start: 03-03-2023 Azithromycin 2 50 MG 2 tablet on the first day, then 1 tablet daily for 4 days Orally Once a day for 5 days Feb, Active ciprofloxacin 250 mg oral tablet (3 sources) Quinolone Antimicrobial Start: 12-11-2023 End: 02-04-2024 take 250 mg by mouth twice daily Ciprofloxacin Hcl Discontinued 250 MG PO Twice daily December 11, 2023 12:00am February 04, 2024 11:46am ibuprofen 600 mg oral tablet (3 sources) Nonsteroidal Anti-inflammatory Drug Start: 12-11-2023 End: 02-04-2024 take 600 mg by mouth every eight hours Ibuprofen Discontinued 600 MG PO Every 8 hours December 11, 2023 12:00am February 04, 2024 11:58am methylPREDNISolone 4 mg oral tablet (5 sources) Corticosteroid Start: 11-04-2023 End: 12-11-2023 take 1 tablet by mouth once Methylprednisolone (Medrol (Edmar)) 4 mg tablets,dose pack Discontinued 0 PO per package directions 24 09November 04, 2023 12:00am December 11, 2023 11:46am PO PER PKG DIR Start: 03-03-2023 methylPREDNISo lone 4 MG as directed Orally daily for 6 days Feb, Active tobramycin 3 mg/ml ophthalmic solution (3 sources) Aminoglycoside Antibacterial Start: 12-11-2023 End: 02-04-2024 take 1 drop(s) into the eye(s) every four hours Tobramycin Discontinued 1 DROPS EYE-BOTH Every 4 hours December 11, 2023 12:00am February 04, 2024 11:46am traMADol hydrochloride 50 mg oral tablet (3 sources) Opioid Agonist Start: 12-11-2023 End: 02-04-2024 take 50 mg by mouth three times daily Tramadol Discontinued 50 MG PO Three times daily December 11, 2023 12:00am February 04, 2024 12:15pm triamcinolone acetonide 1 mg/ml topical cream (4 sources) Corticosteroid Start: 11-04-2023 End: 02-04-2024 Triamcinolone Acetonide Discontinued 1 APPLIC TOPICAL Twice daily 30 November 04, 2023 12:00am February 04, 2024 11:58am Problems Active Problems Problem Classification Problem Date [...] 08-21-2020 Episodic Genitourinary symptoms and ill-defined conditions (7 sources) Dysuria; Translations: [Dysuria] Onset: 12-11-2023 12-11-2023 [...] Overweight; Translations: [Overweight] Episodic Other skin disorders (4 sources) Vesicular eczema; Translations: [Dyshidrosis [pompholyx]] 11-04-2023 Episodic Other skin disorders (3 sources) Dyshidrosis [pompholyx]; Translations: [Dyshidrosis] 11-04-2023 Episodic Otitis media and related conditions (6 sources) Non-suppurative otitis media; Translations: [Unspecified nonsuppurative otitis media, right ear] 11-05-2023 Episodic Residual codes; unclassified (1 source) Normal body mass index; Translations: [Body mass index (BMI) 24.0-24.9, adult] Episodic Spondylosis; intervertebral disc disorders; other back problems (9 sources) Low back pain; Translations: [Low back pain] Onset: 08-18-2016 Resolved: 05-07-2020 Episodic Substance-related disorders (5 sources) Nicotine dependence, cigarettes, uncomplicated; Translations: [Tobacco [...] Results Test Name Value Interpretation Reference Range Facility Laboratory - Chemistry and C hemistry - challengeon 12-11-2023 Bilirubin Ql (U) Negative [facility] Glucose (U) [Mass/Vol] Negative [facility] Ketones Ql (U) Negative [facility] pH (U) 5 [pH] [facility] Specific gravity (U) [Rel density] 1.000 [facility] Urobilinogen (U) [Mass/Vol] 0.2 mg/dL [facility] Laboratory - Microbiology an d Antimicrobial susceptibilityOrdered By: Susan Elizabeth on 12-11-2023 Bacteria identified Cx Nom (U) Escherichia coli Abnormal [facility] Laboratory - Specimen inform ationon 12-11-2023 Appearance (U) clear [facility] Color (U) yellow [facility] Laboratory - Urinalysison Leukocyte esterase Test strip Ql (U) Negative [facility] Nitrite Ql (U) Negative [facility] Protein Ql (U) ++ [facility] No Panel Informationon 12-10 Urine Occult Blood Negative [facility] Urine Cultureon 12-11-2023 Bacteria identified Cx Nom (U) ORGANISM: Escherichia coli (O:ESCCOL) Ayden Count >100,000 Aerobic QUENTIN Charge ([id number]) ----- SUSCEPTIBILITY ---- ORGANISM: O:ESCCOL ANTIBIOTIC INTERPRETATION QUENTIN Amikacin S <16 Amoxacillin/K Clavulanate S <8 Ampicillin S <8 Ampicillin/Sulbactam S <4 Aztreonam S <4 Cefazolin S <2 Cefepime S <2 Ceftazidime S <1 Ceftazidime/Avibacta m S <4 Ceftolozane/Tazobact am S <2 Ceftriaxone S <1 Cefuroxime S <4 Ciprofloxacin S <0.25 Ertapenem S <0.5 Gentamicin S <2 Levofloxacin S <0.5 Meropenem S <1 Meropenem/Vaborbacta m S <2 Nitrofurantoin S <32 Piperacillin/Tazobac dyer S <8 Tetracycline S <4 Tigecycline S <2 Tobramycin S <2 Trimethoprim/Sulfame thoxazole R >2 S = SUSCEPTIBLE I = [...] RESISTANT TO ALL B-LACTAM DRUGS. PERFORMED BY: [place] [address] PATHOLOGIST [employer] PLANT TREATER WILL BLAKELY M.D. Normal [facility] Comment on above: Performed By: #### C UU #### [place] [address] [place] MG MAMM DIOR DIAG W CADon 03- 05-2021 MG MAMM DIOR DIAG W CAD Patient: NATALIE ESCOBEDO Exam Date: 06/08/2020 : 1985 Gender:F Ordering : DR EN KEY . Admission #: [id number] Family : DR SUSAN ELIZABETH M.D. Order #: [id number] CLICK HERE TO VIEW EXAM RADIOLOGY REPORT [...] Treatments None Family Cancers None LOCATION: [facility] BREAST COMPOSITION: Extremely dense, which lowers the [...] MD on 06/08/2020 at 15:18 Normal [facility] US BREAST DIOR LIMITEDon 03-0 US BREAST DIOR LIMITED Patient: NATALIE ESCOBEDO Exam Date: 06/08/2020 : 1985 Gender:F Ordering : DR EN KEY . Admission #: [id number] Family : DR SUSAN ELIZABETH M.D. Order #: [id number] CLICK HERE TO VIEW EXAM RADIOLOGY REPORT [...] Treatments None Family Cancers None LOCATION: [facility] BREAST COMPOSITION: Extremely dense, which lowers the [...] Mac MD on 06/08/2020 at 15:18 Normal [facility] XR LSPINE MIN 4 VIEWSon 03 XR LSPINE MIN 4 VIEWS EXAMINATION: XR [...] by: PALOMO MAC Date: 2020-06-08 15:28 Normal [facility] PAP ACOG PANEL 2: 30 to 65on 05-11-2020 . . Normal [facility] Comment on above: Result Comment: Perf ormed at: WB Performed By: #### [id number] #### [facility] [address] [place] [address] Alfonso Guevara Age Gdln ACOG Testing 30-65 Normal [facility] Comment on above: Performed By: #### [id number] #### [facility] [address] [address] Alfonso Guevara DIAGNOSIS: Comment Normal [facility] Comment on above: Result Comment: NEGA TIVE FOR INTRAEPITHELIAL LESION OR MALIGNANCY. Performed at: WB Performed By: #### [id number] #### [facility] [address] [place] [address] Alfonso Guevara HPV Aptima Negative Normal Negative [facility] Comment on above: Result Comment: This nucleic acid amplification test detects fourteen high-risk HPV types (16,18,31,33,35,39,45,51,52,56,58,59,66,68) without differentiation. Performed at: =G Performed By: #### [id number] #### [facility] [address] [place] [address] Alfonso Guevara Methodology: Comment Normal [facility] Comment on above: Result Comment: This liquid based ThinPrep(R) pap test was screened with the use of an image guided system. Performed at: WB Performed By: #### [id number] #### [facility] [address] [place] [address] Alfonso Guevara Note: Comment Normal [facility] Comment on above: Result Comment: The Pap smear is a screening test designed to aid in the detection of premalignant and malignant conditions of the uterine cervix. It is not a diagnostic procedure and should not be used as the sole means of detecting cervical cancer. Both false-positive and false-negative reports do occur. . Performed at: WB Performed By: #### [id number] #### [facility] [address] [place] [address] Alfonso Guevara Performed by: Comment Normal [facility] Comment on above: Result Comment: Shira Everett, Film Recordist (ASCP) Performed at: WB Performed By: #### [id number] #### [facility] [address] [place] [address] Alfonso Guevara Specimen adequacy: Comment Normal [facility] Comment on above: Result Comment: Sati sfactory for evaluation. Endocervical and/or squamous metaplastic cells (endocervical component) are present. Performed at: WB Performed By: #### [id number] #### [facility] [address] [place] [address] Alfonso Guevara Vital Signs Date Time Vital Sign Value Performing Clinician Facility 02-04-2024 11:48-0400 Body height 162.56 cm MD Susan Elizabeth Work Phone: [facility] 02-04-2024 11:48-0400 Body mass index (BMI) [Ratio] 24.9 kg/m2 MD Susan Elizabeth Work Phone: [facility] 02-04-2024 11:48-0400 Body weight 65.77 kg MD Susan Elizabeth Work Phone: [facility] 02-04-2024 11:48-0400 Diastolic blood pressure 78 mm[Hg] MD Susan Elizabeth Work Phone: [facility] 02-04-2024 11:48-0400 Heart rate 80 /min MD Susan Elizabeth Work Phone: [facility] 02-04-2024 11:48-0400 SaO2% (BldA) [Mass fraction] 98 % MD Susan Elizabeth Work Phone: [facility] 02-04-2024 11:48-0400 Systolic blood pressure 108 mm[Hg] MD Susan Elizabeth Work Phone: [facility] 12-11-2023 11:44-0400 Body height 162.56 cm [facility] 12-11-2023 11:44-0400 Body mass index (BMI) [Ratio] 25.4 kg/m2 [facility] 12-11-2023 11:44-0400 Body weight 67.13 kg [facility] 12-11-2023 11:44-0400 Diastolic blood pressure 66 mm[Hg] [facility] 12-11-2023 11:44-0400 Heart rate 60 /min [facility] 12-11-2023 11:44-0400 Systolic blood pressure 101 mm[Hg] [facility] 11-04-2023 14:42-0400 Body height 162.56 cm [facility] 11-04-2023 14:42-0400 Body mass index (BMI) [Ratio] 24 kg/m2 [facility] 11-04-2023 14:42-0400 Body weight 63.5 kg [facility] 11-04-2023 14:42-0400 Diastolic blood pressure 76 mm[Hg] [facility] 11-04-2023 14:42-0400 Heart rate 72 /min [facility] 11-04-2023 14:42-0400 SaO2% (BldA) [Mass fraction] 98 % [facility] 11-04-2023 14:42-0400 Systolic blood pressure 128 mm[Hg] [facility] 03-03-2023 11:15-0500 Body height 162.56 cm Lindy Gretchen Other [facility] Other 03-03-2023 11:15-0500 Body mass index (BMI) [Ratio] 24.2 kg/m2 Lindy Gretchen Other [facility] Other 03-03-2023 11:15-0500 Body temperature 97.6 [degF] Lindy Gretchen Other [facility] Other 03-03-2023 11:15-0500 Body weight 63.96 kg Lindy Gretchen Other [facility] Other 03-03-2023 11:15-0500 Diastolic blood pressure 70 mm[Hg] Lindy Gretchen Other [facility] Other 03-03-2023 11:15-0500 SaO2% (BldA) [Mass fraction] 99 % Lindy Gretchen Other [facility] Other 03-03-2023 11:15-0500 Systolic blood pressure 110 mm[Hg] Lindy Godinez Other [facility] Other Encounters Encounter Date Encounter Type Care Provider Facility Start: 02-04-2024 End: 02-04-2024 ambulatory MD Susan Elizabeth Work Phone: [facility] Work Phone: Start: 02-04-2024 End: 02-04-2024 Patient encounter procedure MD [facility] Start: 12-11-2023 End: 12-11-2023 ambulatory Susan Elizabeth [facility] Work Phone: Start: 12-11-2023 End: 12-11-2023 Departed Referred MD Susan Elizabeth Work Phone: [facility] [place] Work Phone: Start: 12-11-2023 End: 12-11-2023 ambulatory [facility] Work Phone: Start: 12-11-2023 End: 12-11-2023 Patient encounter procedure [facility] Work Phone: Start: 11-04-2023 End: 11-04-2023 ambulatory [facility] Work Phone: Start: 11-04-2023 End: 11-04-2023 Patient encounter procedure [facility] Work Phone: Start: 03-03-2023 End: 03-03-2023 ambulatory Lindy Godinez Other [facility] Other Start: 03-03-2023 Office outpatient vi sit 15 minutes Lindy Godinez [facility] Start: 10-03-2021 Gynecological examination normal Lindy Godinez Other [facility] Other Start: 10-04-[address] SUSAN ELIZABETH Facil ity:[facility]1 Start: 08-19-2020 End: 08-19-[address] SUSAN ELIZABETH Facility:[facility] Start: 07-24-2020 End: 07-24-2020 Patient encounter procedure Lindy Dobson Work Phone: [facility] [place] Start: 06-08-2020 End: [address] SUSAN ELIZABETH Facility:[facility] Start: 05-08-2020 End: 05-08-[address] EN KEY Facility:[facility] Procedures Date Procedure Procedure Detail Performing Clinician Start: 12-11-2023 Bacteria identified in Urine by Culture MD Susan Elizabeth Work Phone: Start: 06-13-2020 Replacement of intra uterine contraceptive device Lindy Gretchen Other Removal of suture Lindy Any molina Other Plan of Treatment Date Care Activity Detail Author Start: 12-11-2023 Bacteria identified in Urine by Culture [facility] Bacteria identified in Urine by Culture [facility] Urine culture [facility] XR Cervical spine 5 Views [facility] Payers Date Payer Category Payer Unknown [id number] 2.16.84 [id number] 1985 Unknown [id number] 2.16.84 [id number] 1985 Unknown [id number] 2.16.84 [id number] 1985 Unknown [id number] 2.16.84 [id number] 1985 Unknown [id number] 2.16.84 [id number] 1958 Self-pay [id number] 1958 Unknown [id number] Unknown [id number] 2.16.8 [id number] Social History Date Type Detail Facility Tobacco smoking status MOIS Unknown if ever smoked [facility] Start: 1985 Sex Assigned At Female F [facility] Sex Assigned At Sex Assigned At Bir th [facility] Other Start: 11-04-2023 Tobacco smoking status NHIS Never smoked tobacco (finding) [facility] Goals Date Patient Goal Desired Activity /State [...] while using steroids. Increase fluids and rest. [id number] antipyretics as needed. Warning signs and symptoms reviewed with patient today. Patient to go immediately to the ER should she experience any of these. Patient to notify office should her symptoms persist and not improve. Patient verbalizes understanding and agrees to treatment plan. [facility] Other Evaluation note Note Date & Type Note Facility Evaluation note No Assessments Information Avail able [facility] Evaluation note Note Date & Type Note Facility Evaluation note Diagnosis Onset Date Dyshidrotic eczema acute [facility] Work Phone: Evaluation note Note Date & Type Note Facility Evaluation note Diagnosis Onset Date Dyshidrotic eczema acute Eustachian tube dysfunction acute Dysuria acute [facility] Work Phone: Evaluation note Note Date & Type Note Facility Evaluation note Diagnosis Onset Date Dyshidrotic eczema acute Eustachian tube dysfunction acute Dysuria acute Tobacco dependence [facility] Work Phone: Evaluation note Note Date & Type Note Facility Evaluation note Diagnosis Onset Date Dysuria acute Tobacco dependence acute Cervical radicular pain acut e [facility] Work Phone: History general Narrative - Reported Note Date & Type Note Facility History general Narrative - Reported Type Surgical History Oral surgery [facility] Other Advance Directives Advance Directive Response Recorded Date/ Time Advance [...] eczema Eustachian tube dysfunction Dysuria Tobacco dependence Chief Complaint Urinary Tract Infect ion / UTI R30.0 L Shoulder Pain Reason for Visit Dysuria Tobacco dependence Cervical radicular pain Summary Purpose Family History Relationship Condition Age at Onset Recorded Date/T [...] CREATED AUTHOR AUTHOR'S ORGANIZ ATION 12/24/2023 [facility] REASON FOR VISIT (unrecogniz ed section and content) CONGESTION FOR OVER A WEEK Care Teams (unrecognized sec tion and content) Team Status: Active Member Role Status Dates Lindy Dobson MD Primary Care Provider Active Team Status: Inactive Member Role Status Dates Lindy Dobson MD Primary Care Provider Active Start: November 04, 2023 End: November 04, 2023 Lindy Godinez APRN RV REPAIRER-C Attending Provider Act ita Start: November 04, 2023 End: November 04, 2023 Team Status: Inactive Member Role Status Dates Lindy Dobson MD Primary Care Provider Active Start: December 11, 2023 End: December 11, 2023 Susan Elizabeth MD Attending Provider Active St art: December 11, 2023 End: December 11, 2023 Team Status: Inactive Member Role Status Dates Susan Elizabeth MD Attending Provider Active St art: December 11, 2023 End: December 11, 2023 Team Status: Active Member Role Status Dates Susan Elizabeth MD Primary Care Provider Active Team Status: Inactive Member Role Status Dates Susan Elizabeth MD Primary Care Provide r, Attending Provider Active Start: February 04, 2024 End: February 04, 2024 Goals (unrecognized section and content) Goals may [...] ON THE PRIMARY CLINICAL RECORDS. [facility]. provides no warranty or guarantee of the accuracy or completeness of information in this document.
== END 2024-02-04 17:58 | disposition home or self-care (01) ==
LOC: RAD 17:58
PROVIDERS: PCP Family Medicine; Visit Provider Family Medicine
DX: M54.12 Radiculopathy, cervical region (principal)
CPT/HCPCS: 72050

== ENCOUNTER 2024-02-17 16:22 | Outpatient (RCR) | payer BC, SELFPAY | END 2024-04-05 14:59 | disposition home or self-care (01) | LOC: PT 16:22 | PROVIDERS: PCP Family Medicine; Visit Provider Family Medicine | DX: M54.12 Radiculopathy, cervical region (principal) | CPT/HCPCS: 97010; 97012; 97014; 97110; 97112; 97140; 97162 ==

== ENCOUNTER 2024-04-06 09:51 | Outpatient (RCR) | payer BC, SELFPAY | END 2024-04-07 08:52 | disposition home or self-care (01) | LOC: PT 09:51 | PROVIDERS: PCP Family Medicine; Visit Provider Family Medicine | DX: M54.12 Radiculopathy, cervical region (principal) ==